=== PATIENT | male | born 1960 ===

== ENCOUNTER 2025-04-18 11:50 | Inpatient (IN) ==
--- NOTE | 2025-04-18 12:30 | Emergency Department Note ---
Impression & Plan Pulmonary edema, DIXON (dyspnea on exertion), Abnormal EKG, Elevated INR ED Provider Note NAME: REGINA GABRIEL AGE: 65 SEX: M : 1960 ARRIVES VIA: Walk-In INFORMANT: Patient, ED PROVIDER(S): Catracho Monte DO CHIEF COMPLAINT: Difficulty breathing HPI: The patient is a 65-year-old male who presented to the emergency department for an evaluation of difficulty breathing. Patient with history of coronary artery bypass grafting. The patient presented to the emergency department today because of worsening shortness of breath as well as lower extremity edema. The patient was seen by the primary care physician. The patient was referred to the emergency department for further evaluation. ROS: See above HPI for pertinent positives & negatives. A total of 10 systems reviewed and were otherwise negative. PAST MEDICAL HISTORY: See Below PAST SURGICAL HISTORY: See Below FAMILY HISTORY: See Below SOCIAL HISTORY: See Below HOME MEDICATIONS: See Below ALLERGIES: See Below VITALS: See Below PHYSICAL EXAMINATION: GENERAL: Patient is awake alert in no acute distress patient is resting comfortably and showing no signs of anxiety EYES: The conjunctivae are clear. The pupils are round and reactive. EARS, NOSE, MOUTH AND THROAT: The nose is without any evidence of any deformity. NECK: The neck is nontender and supple. RESPIRATORY: Diminished breath sounds are noted throughout with rales in all lung metzger. There is tachypnea as well as conversational dyspnea appreciated. CARDIOVASCULAR: Regular rate and rhythm noted there no murmurs rubs or gallops normal S1 normal S2. GASTROINTESTINAL: The abdomen is soft. Abdomen is nontender. MUSCULOSKELETAL/EXTREMITIES: There is no evidence of gross deformity full range of motion is noted in the hips and shoulders. SKIN: The skin is warm and dry. Pedal edema was noted bilaterally. NEUROLOGIC: Patient is awake alert and oriented x3 MEDICAL DECISION MAKING: The patient is a 65-year-old male who has a history of coronary artery bypass grafting who presented to the emergency department for an evaluation of weight gain and his leg swelling and shortness of breath. The patient's history and physical exam do appear to be consistent pulmonary edema. I discussed the patient's laboratory and radiographic studies with him. He was treated with IV Lasix in the emergency department. He was reevaluated multiple times. On reevaluation the patient was mildly improved. I discussed the patient's condition with the on-call [facility] hospitalist. They have agreed to evaluate the patient in the emergency department for further management and disposition. Triage Nursing notes reviewed. Prior medical records reviewed Vital Signs: reviewed and remarkable for elevated blood pressure. Differential diagnosis: Reactive airway disease, pneumonia, pneumothorax, COPD, CHF, infections, cardiac ischemia, pulmonary embolism, musculoskeletal, gastrointestinal, as well as other pathologies. ER treatment provided: See below Diagnostics interpreted by me: ECG: EKG was obtained in the emergency department. My interpretation is sinus rhythm at 90 bpm. First-degree AV block is noted. Poor R wave progression was noted with nonspecific ST and T wave abnormalities. QTc was 477 ms. Cardiac Monitoring: An order was placed for continuous cardiac monitoring. The monitor shows a rate of 72 bpm with a sinus rhythm. Laboratory studies: As stated above and show below. Imaging studies: See below. Radiographic imaging was reviewed by myself Consultation(s): I discussed this case with Leticia who is on for the [facility]ist group. Past Med/Surg History Problem List (Updated 04/18/25 @ 14:59 by Catracho Monte DO) Elevated INR (Acute) Abnormal EKG (Acute) DIXON (dyspnea on exertion) (Acute) Pulmonary edema (Acute) Medical History (Updated 04/18/25 @ 14:59 by Catracho Monte DO) CKD (chronic kidney disease) stage 3, GFR 30-59 ml/min Osteoarthritis of multiple joints Fatty liver Bladder cancer Diabetic polyneuropathy Hyperlipidemia Essential hypertension NSTEMI (non-ST elevated myocardial infarction) PAF (paroxysmal atrial fibrillation) Type 2 diabetes mellitus Coronary artery disease Surgical History (Updated 04/18/25 @ 14:30 by Evelina Baeza PA-C) H/O cystoscopy History of coronary artery bypass graft Social History Smoking Status: Light tobacco smoker Tobacco Type: Smokeless Tobacco (Dip or Chew) Feels Safe at Home: Yes Allergies Allergies Allergy/AdvReac Type Severity Reaction Status Date / Time metformin AdvReac Gastrointestinal Verified 04/18/25 13:51 Upset Home Meds Home Medications Medication Instructions Recorded Confirmed atorvastatin 80 mg tablet 80 mg PO DAILY 04/18/25 04/18/25 clopidogrel 75 mg tablet 75 mg PO DAILY 04/18/25 04/18/25 empagliflozin 25 mg tablet 25 mg PO DAILY 04/18/25 04/18/25 (Jardiance) furosemide 80 mg tablet 80 mg PO BID 04/18/25 04/18/25 gabapentin 300 mg capsule 300 mg PO HS 04/18/25 04/18/25 glipizide 10 mg tablet, extended 20 mg PO DAILY 04/18/25 04/18/25 release 24 hr lisinopril 40 mg tablet 40 mg PO DAILY 04/18/25 04/18/25 metoprolol succinate 25 mg 50 mg PO DAILY 04/18/25 04/18/25 tablet,extended release 24 hr potassium chloride 20 mEq 20 meq PO BID 04/18/25 04/18/25 tablet,extended release(part/cryst) repaglinide 2 mg tablet 2 mg PO AC 04/18/25 04/18/25 warfarin 5 mg tablet (Jantoven) 5 mg PO UD 04/18/25 04/18/25 Results & Data (ED) Vital Signs Vital Signs - 24 hr 04/18/25 12:02 04/18/25 13:30 04/18/25 14:24 Temperature 36.8 C Temperature Source Temporal Artery Scan Pulse Rate 81 Pulse Rate [Left Finger] 72 Respiratory Rate 16 20 Respiratory Effort / Characteristics Non-Labored Respiratory Depth Normal Blood Pressure 178/84 H Blood Pressure [Left Arm] 165/93 H Blood Pressure Mean 115 Blood Pressure Mean [Left Arm] 117 Pulse Oximetry 91 95 86 L Oxygen Delivery Method Room Air Room Air Oxygen Flow Rate Sepsis Recent Fever Within 48 Hours No Sepsis New/Unexplained Change in Mental Status No Sepsis Action Taken by Nursing No Action Required 04/18/25 14:24 Temperature Temperature Source Pulse Rate Pulse Rate [Left Finger] Respiratory Rate Respiratory Effort / Characteristics Respiratory Depth Blood Pressure Blood Pressure [Left Arm] Blood Pressure Mean Blood Pressure Mean [Left Arm] Pulse Oximetry 93 Oxygen Delivery Method Nasal Cannula Oxygen Flow Rate 2 Sepsis Recent Fever Within 48 Hours Sepsis New/Unexplained Change in Mental Status Sepsis Action Taken by Detention Medications Current Medication List: was personally reviewed by me Laboratory Data Attestation: I reviewed the patient's lab results. 04/18/25 12:14 04/18/25 12:14 Lab Results 04/18/25 04/18/25 04/18/25 Range/Units 12:14 14:07 14:21 WBC 8.22 (4.8-10.8) K/ul RBC 3.69 L (4.70-6.10) M/uL Hgb 9.8 L (14.0-18.0) g/dl Hct 31.7 L (42.0-52.0) % MCV 85.9 (80.0-100.0) fL MCH 26.6 (25.0-34.0) pg MCHC 30.9 L (32.0-36.0) g/dL RDW Std Deviation 52.9 H (36.4-46.3) fL RDW Coeff of Aleah 16.8 H (11.5-14.5) % Plt Count 267 (130-400) K/uL MPV 12.0 (9.4-12.4) fL Immature Gran % (Auto) 0.2 % Neut % (Auto) 73.2 % Lymph % (Auto) 14.4 % [place] % (Auto) 9.0 % Eos % (Auto) 2.2 % Baso % (Auto) 1.0 % Neut # (Auto) 6.02 (1.40-6.50) K/uL Lymph # (Auto) 1.18 L (1.20-3.40) K/uL [place] # (Auto) 0.74 H (0.11-0.59) K/uL Eos # (Auto) 0.18 (0.00-0.50) K/uL Baso # (Auto) 0.08 (0.00-0.20) K/uL Immature Gran # (Auto) 0.02 (0.01-0.20) K/uL PT 84.7 H (9.0-12.0) Seconds INR > 9.5 H* (0.9-1.1) APTT 68 H (21-31) Seconds PTT Ratio 2.5 Sodium 143 (136-145) mmol/L Potassium 3.9 (3.5-5.1) mmol/L Chloride 109 H (98-107) mmol/L Carbon Dioxide 22 (21-32) mmol/L Anion Gap 12 H (3-11) BUN 22 (6-23) mg/dl Creatinine 1.47 H (0.6-1.4) mg/dl Est Cr Clr Drug Dosing 62.3 ml/min eGFR 51.96 BUN/Creatinine Ratio 15.0 (10-20) Glucose 107 H (70-99(Fasting)) mg/dl Calcium 9.2 (8.6-10.3) mg/dl Magnesium 1.8 (1.7-2.4) mg/dl Total Bilirubin 1.0 (0.2-1.0) mg/dl AST 29 (13-39) U/L ALT 17 (7-52) U/L Alkaline Phosphatase 173 H (34-104) U/L Troponin I High Sens 25.3 H 25.0 H (0-20) pg/ml B-Natriuretic Peptide 1207 H (0-100) pg/ml Total Protein 7.8 (6.0-8.3) gm/dl Albumin 4.0 (3.4-5.0) gm/dl Globulin 3.8 (2.5-4.0) gm/dl Albumin/Globulin Ratio 1.1 (0.9-2) Urine Color [place] Urine Appearance Clear (Clear) Urine pH 6.5 (4.5-7.5) Ur Specific [place] 1.009 (1.000-1.030) Urine Protein 3+ H (Negative) Urine Glucose (UA) Negative (Negative) Urine Ketones Negative (Negative) Urine Blood 3+ H (Negative) Urine Nitrite Negative (Negative) Urine Bilirubin Negative (Negative) Urine Urobilinogen Negative (Negative) Ur Leukocyte Esterase Trace H (Negative) Urine WBC (Auto) 0-5 (0-5) /hpf Urine RBC (Auto) >20 H (0-2) /hpf U Hyaline Cast (Auto) 0-2 (0-2) /lpf U Epithel Cells (Auto) 0-2 (0-2) /hpf Urine Bacteria (Auto) None Seen (None Seen) Urine Comment SARS-CoV-2 (PCR) NEGATIVE (Negative) Influenza Type A (PCR) Negative (Neg) Influenza Type B (PCR) Negative (Neg) RSV (RT-PCR) Negative (Neg) Administered Medications Discontinued Medications Furosemide (Furosemide 40 Mg/4 Ml Vial) 80 mg IV ONE ONE Stop: 04/18/25 13:31 Last Admin: 04/18/25 13:50 Dose: 80 mg Documented By: KARLI Imaging Data Attestation: I personally reviewed and interpreted this imaging study as follows: My Impression: 1 view chest x-ray was obtained in the emergency department. My interpretation is cardiomegaly, final report below. Radiologist's Impression: Chest X-Ray 04/18/25 12:09 EXAM: Radiograph of the Chest 1 View INDICATION: Pain and shortness of breath. TECHNIQUE: Frontal view of the chest. COMPARISON: No relevant prior studies available. FINDINGS: Lungs and pleural spaces: Small left pleural effusion present. Mild atelectasis left base. No pneumothorax. No pulmonary edema. Heart: Enlarged cardiac shadow. Coronary bypass change noted. Mediastinum: Normal contour. Bones/joints: No fracture, erosion or dislocation. Soft tissues: No abnormality noted. No radiopaque foreign body noted. Upper abdomen: No abnormality noted. IMPRESSION: Small left pleural effusion and left basilar atelectasis. ACT 112: N/A Electronically signed by Shanthi Aguilera 04-18-2025 13:19 PM Discharge Plan Visit Data Chief Complaint: Cardiac Assessment Stated Complaint: HEART FAILURE ED Provider: Catracho Monte Discharge Problem: Pulmonary edema, DIXON (dyspnea on exertion), Abnormal EKG, Elevated INR Patient Disposition: Being Evaluated by Hospitalist Condition: Fair Forms Stand Alone Forms: My [facility] Prescriptions Prescriptions: No Action atorvastatin 80 mg tablet 80 mg PO DAILY glipizide 10 mg tablet extended release 24hr 20 mg PO DAILY clopidogrel 75 mg tablet 75 mg PO DAILY potassium chloride 20 mEq tablet,ER particles/crystals 20 meq PO BID furosemide 80 mg tablet 80 mg PO BID warfarin [Jantoven] 5 mg tablet 5 mg PO UD gabapentin 300 mg capsule 300 mg PO HS lisinopril 40 mg tablet 40 mg PO DAILY repaglinide [Prandin] 2 mg Tablet 2 mg PO AC Rx Instructions: administer within 30 minutes of a meal or snack Jardiance 25 mg Tablet 25 mg PO DAILY metoprolol succinate 25 mg Tablet Extended Release 24 Hr 50 mg PO DAILY Referrals Referrals: PCP,NO [Physician] -
[2025-04-18 12:35] LABS: Hematocrit (blood only) 31.7 % (42.0-52.0); Hemoglobin 9.8 g/dl (14.0-18.0); Immature Granulocytes # (auto) 0.02 K/uL (0.01-0.20); Immature Granulocytes % (auto) 0.2 %; Mean Corpuscular Hemoglobin 26.6 pg (25.0-34.0); Mean Corpuscular Volume 85.9 fL (80.0-100.0); Platelet Count 267 K/uL (130-400); RDW Standard Deviation 52.9 fL (36.4-46.3); Red Blood Count 3.69 M/uL (4.70-6.10); White Blood Count 8.22 K/ul (4.8-10.8)
[2025-04-18 12:57] LABS: Alanine Aminotransferase 17.0 U/L (7-52); Albumin Globulin Ratio 1.1 (0.9-2); Albumin Level 4.0 gm/dl (3.4-5.0); Alkaline Phosphatase 173.0 U/L (34-104); Anion Gap 12.0 (3-11); Bilirubin,Total 1.0 mg/dl (0.2-1.0); Blood Urea Nitrogen 22.0 mg/dl (6-23); Calcium 9.2 mg/dl (8.6-10.3); Carbon Dioxide 22.0 mmol/L (21-32); Chloride 109.0 mmol/L (98-107); Creatinine Clr Calc Pharmacy 62.3 ml/min; Globulin 3.8 gm/dl (2.5-4.0); Glucose 107.0 mg/dl (70-99(Fasting)); Magnesium 1.8 mg/dl (1.7-2.4); Potassium 3.9 mmol/L (3.5-5.1); Sodium 143.0 mmol/L (136-145); Total Protein 7.8 gm/dl (6.0-8.3)
[2025-04-18 13:12] LABS: Partial Thromboplastin Time 68 Seconds (21-31); Prothrombin Time 84.7 Seconds (9.0-12.0)
[2025-04-18 13:16] LABS: Influenza A virus by PCR Negative (Neg); Influenza B virus by PCR Negative (Neg); SARS CoV2 RNA(COVID-19) Ceph NEGATIVE (Negative)
--- NOTE | 2025-04-18 13:20 | XRay Report ---
EXAM: Radiograph of the Chest 1 View INDICATION: Pain and shortness of breath. TECHNIQUE: Frontal view of the chest. COMPARISON: No relevant prior studies available. FINDINGS: Lungs and pleural spaces: Small left pleural effusion present. Mild atelectasis left base. No pneumothorax. No pulmonary edema. Heart: Enlarged cardiac shadow. Coronary bypass change noted. Mediastinum: Normal contour. Bones/joints: No fracture, erosion or dislocation. Soft tissues: No abnormality noted. No radiopaque foreign body noted. Upper abdomen: No abnormality noted. IMPRESSION: Small left pleural effusion and left basilar atelectasis. ACT 112: N/A Electronically signed by Shanthi Aguilera 04-18-2025 13:19 PM
[2025-04-18 13:26] LABS: INR > 9.5 (0.9-1.1)
[2025-04-18] MEDS: FUROSEMIDE 40 MG/4 ML VIAL IV ONE (13:50)
--- NOTE | 2025-04-18 14:34 | History & Physical Report ---
Date of Service April 18, 2025 Assessment & Plan (1) Acute on chronic HFrEF (heart failure with reduced ejection fraction): (2) Elevated INR: (3) CKD (chronic kidney disease) stage 3, GFR 30-59 ml/min: (4) Coronary artery disease: (5) Type 2 diabetes mellitus: (6) PAF (paroxysmal atrial fibrillation): (7) Hyperlipidemia: (8) Essential hypertension: Plan This is a 65 y/o male with hx CAD s/p CABG x 5, DM2, HTN, hyperlipidemia, PAF on chronic AC, CKD3a, prior bladder CA, and other history as outlined below who was sent to the ED today from PCP office after he presented today with progressive LE edema and elevated INR. Work-up in the ED was significant for INR >9.5, BNP 1207. Initial troponin was 25.3, two hour repeat was 25.0. Testing for COVID, flu, RSV were negative. Chest x-ray personally reviewed and shows small left pleural effusion. Pt was referred for admission for acute on chronic HFrEF. #Acute on chronic HFrEF #Supratherapeutic INR #CAD s/p CABG x 5 - Admit to PCU - IV furosemide 80 mg BID - Update ECHO - Consult cardiology for assistance with management - Monitor daily weights, Is and Os - Hold warfarin in setting of elevated INR, daily INR ordered - spoke with pt's to review medications. She reports that pt has been taking warfarin BID instead of daily as ordered. Will need to review medications with patient and his at discharge to ensure understanding of prescribed regimen. - Continue GDMT for HF as taken outpatient #Left jaw pain/ecchymosis - pt somewhat unclear on possible trauma to the area, denies falls - CT head and face in the setting of supratherapeutic INR, unknown trauma history #Type 2 diabetes - Continue Jardiance, holding glipizide - Insulin sliding scale - BSG ACHS - A1c in the AM - Diabetic diet #Paroxysmal atrial fibrillation #Chronic anticoagulation with warfarin - Holding warfarin as above - Continue beta zack - currently in sinus rhythm #CKD3a - creatinine appears to be at baseline - Monitor labs in the setting of IV diuresis #Hyperlipidemia - Chronic, stable - continue statin Pt seen and reviewed with collaborating physician, Dr. Daly. Plan of care discussed and as outlined above Code status: full code DVT prophylaxis: INR currently supratherapeutic so warfarin on hold I spent a total of 82 minutes coordinating, documenting, and providing care for this patient excluding time spent in the performance of separately billed services or time spent by another provider/QHP. Sindi Baeza PA-C History of Present Illness Chief Complaint: leg swelling Primary Care Provider: Audie Vaughn MD This is a 65 y/o male with hx CAD s/p CABG x 5, DM2, HTN, hyperlipidemia, PAF on chronic AC, CKD3a, prior bladder CA, and other history as outlined below who was sent to the ED today from PCP office after he presented today with progressive LE edema and elevated INR. He reports that he developed LE swelling about a week ago, which has been worsening. He also notes occasional shortness of breath but denies orthopnea. Reports that he sleeps with his legs propped up at night. Denies cough, N/V/D, CP, orthopnea, abdominal pain. He was seen at PCP office today by Dr. Barreto due to the swelling, but also reported pain in left jaw which he attributes to a "bad tooth." He was noted to have a bruise on his jaw - when asked about this, he states that he thinks that he hit his jaw on the corner of the cupboard trying to look outside. He denies hematuria, hematochezia. Has had some constipation recently. Outpatient notes were reviewed including from anticoagulation clinic - his INR has been fluctuating recently and dose was just adjusted to warfarin 5 mg daily. However, INR yesterday was 6.7 so he was told to hold warfarin until 04/19, repeat INR 04/20 to determine future dosing. ECHO 02/28/24 -LVEF 40-44%, large sized apical, septal, and anteroseptal wall motion abnormality with akinesis of the segments Allergies Allergy/AdvReac Type Severity Reaction Status Date / Time metformin AdvReac Gastrointestinal Verified 04/18/25 13:51 Upset Home Medications Medication Instructions Recorded Confirmed Type atorvastatin 80 mg tablet 80 mg PO DAILY 04/18/25 04/18/25 History clopidogrel 75 mg tablet 75 mg PO DAILY 04/18/25 04/18/25 History empagliflozin 25 mg tablet 25 mg PO DAILY 04/18/25 04/18/25 History (Jardiance) furosemide 80 mg tablet 80 mg PO BID 04/18/25 04/18/25 History gabapentin 300 mg capsule 300 mg PO HS 04/18/25 04/18/25 History glipizide 10 mg tablet, extended 20 mg PO DAILY 04/18/25 04/18/25 History release 24 hr lisinopril 40 mg tablet 40 mg PO DAILY 04/18/25 04/18/25 History metoprolol succinate 25 mg 50 mg PO DAILY 04/18/25 04/18/25 History tablet,extended release 24 hr nifedipine 90 mg tablet,extended 90 mg PO DAILY 04/18/25 04/18/25 History release potassium chloride 20 mEq 20 meq PO BID 04/18/25 04/18/25 History tablet,extended release(part/cryst) repaglinide 2 mg tablet 2 mg PO AC 04/18/25 04/18/25 History warfarin 5 mg tablet (Jantoven) 5 mg PO UD 04/18/25 04/18/25 History Past Med/Surg History Problem List (Updated 04/18/25 @ 20:18 by Evelina Baeza PA-C) Acute on chronic HFrEF (heart failure with reduced ejection fraction) Elevated INR (Acute) Abnormal EKG (Acute) DIXON (dyspnea on exertion) (Acute) Pulmonary edema (Acute) Medical History (Updated 04/18/25 @ 20:18 by Evelina Baeza PA-C) CKD (chronic kidney disease) stage 3, GFR 30-59 ml/min Osteoarthritis of multiple joints Fatty liver Bladder cancer Diabetic polyneuropathy Hyperlipidemia Essential hypertension NSTEMI (non-ST elevated myocardial infarction) PAF (paroxysmal atrial fibrillation) Type 2 diabetes mellitus Coronary artery disease Surgical History (Updated 04/18/25 @ 14:30 by Evelina Baeza PA-C) H/O cystoscopy History of coronary artery bypass graft Social History Smoking Status: Never smoker Tobacco Type: Smokeless Tobacco (Dip or Chew) Second Hand Exposure: No; Do You Dip or Chew Tobacco: Yes; Tobacco Cessation Education Requested by Patient: No Hx Alcohol Use: Yes Alcohol type: wine Hx Substance Use: No Preferred Language: Tajik Communication Ability: Effective Assistant Mechanic Required: No Beliefs That Will Affect Care: None Current Living Situation: Spouse Other Information That Helps Us Care for You: No Feels Safe at Home: Yes Safety Concerns: Afraid for Self Assistive Devices: Glasses and Hearing Aid - Bilateral Review of Systems Review of Systems: All systems reviewed & are unremarkable except as noted in Subjective Physical Exam Physical Exam: Please see physician note for details of the physical exam. Results & Data Results & Data Vital Signs (Past 12 Hours) Vital Signs Temp Pulse Pulse Resp BP BP Pulse Ox 04/18/25 14:24 93 04/18/25 14:24 86 L 04/18/25 13:30 72 20 165/93 H 95 04/18/25 12:02 36.8 C 81 16 178/84 H 91 O2 Del Method O2 Flow Rate 04/18/25 14:24 Nasal Cannula 2 04/18/25 14:24 Room Air 04/18/25 13:30 04/18/25 12:02 Room Air Laboratory Results Lab Results 04/18/25 04/18/25 Range/Units 12:14 14:21 WBC 8.22 (4.8-10.8) K/ul RBC 3.69 L (4.70-6.10) M/uL Hgb 9.8 L (14.0-18.0) g/dl Hct 31.7 L (42.0-52.0) % MCV 85.9 (80.0-100.0) fL MCH 26.6 (25.0-34.0) pg MCHC 30.9 L (32.0-36.0) g/dL RDW Std Deviation 52.9 H (36.4-46.3) fL RDW Coeff of Aleah 16.8 H (11.5-14.5) % Plt Count 267 (130-400) K/uL MPV 12.0 (9.4-12.4) fL Immature Gran % (Auto) 0.2 % Neut % (Auto) 73.2 % Lymph % (Auto) 14.4 % [place] % (Auto) 9.0 % Eos % (Auto) 2.2 % Baso % (Auto) 1.0 % Neut # (Auto) 6.02 (1.40-6.50) K/uL Lymph # (Auto) 1.18 L (1.20-3.40) K/uL [place] # (Auto) 0.74 H (0.11-0.59) K/uL Eos # (Auto) 0.18 (0.00-0.50) K/uL Baso # (Auto) 0.08 (0.00-0.20) K/uL Immature Gran # (Auto) 0.02 (0.01-0.20) K/uL PT 84.7 H (9.0-12.0) Seconds INR > 9.5 H* (0.9-1.1) APTT 68 H (21-31) Seconds PTT Ratio 2.5 Sodium 143 (136-145) mmol/L Potassium 3.9 (3.5-5.1) mmol/L Chloride 109 H (98-107) mmol/L Carbon Dioxide 22 (21-32) mmol/L Anion Gap 12 H (3-11) BUN 22 (6-23) mg/dl Creatinine 1.47 H (0.6-1.4) mg/dl Est Cr Clr Drug Dosing 62.3 ml/min eGFR 51.96 BUN/Creatinine Ratio 15.0 (10-20) Glucose 107 H (70-99(Fasting)) mg/dl Calcium 9.2 (8.6-10.3) mg/dl Magnesium 1.8 (1.7-2.4) mg/dl Total Bilirubin 1.0 (0.2-1.0) mg/dl AST 29 (13-39) U/L ALT 17 (7-52) U/L Alkaline Phosphatase 173 H (34-104) U/L Troponin I High Sens 25.3 H (0-20) pg/ml B-Natriuretic Peptide 1207 H (0-100) pg/ml Total Protein 7.8 (6.0-8.3) gm/dl Albumin 4.0 (3.4-5.0) gm/dl Globulin 3.8 (2.5-4.0) gm/dl Albumin/Globulin Ratio 1.1 (0.9-2) Urine Comment SARS-CoV-2 (PCR) NEGATIVE (Negative) Influenza Type A (PCR) Negative (Neg) Influenza Type B (PCR) Negative (Neg) RSV (RT-PCR) Negative (Neg) Diagnostic Findings Chest X-Ray 04/18/25 12:09 EXAM: Radiograph of the Chest 1 View INDICATION: Pain and shortness of breath. TECHNIQUE: Frontal view of the chest. COMPARISON: No relevant prior studies available. FINDINGS: Lungs and pleural spaces: Small left pleural effusion present. Mild atelectasis left base. No pneumothorax. No pulmonary edema. Heart: Enlarged cardiac shadow. Coronary bypass change noted. Mediastinum: Normal contour. Bones/joints: No fracture, erosion or dislocation. Soft tissues: No abnormality noted. No radiopaque foreign body noted. Upper abdomen: No abnormality noted. IMPRESSION: Small left pleural effusion and left basilar atelectasis. ACT 112: N/A Electronically signed by Shanthi Aguilera 04-18-2025 13:19 PM Medications Administered Discontinued Medications Furosemide (Furosemide 40 Mg/4 Ml Vial) 80 mg IV ONE ONE Stop: 04/18/25 13:31 Last Admin: 04/18/25 13:50 Dose: 80 mg Documented By: KARLI Supervising Physician Co-Signing Physician Notes Presents with leg swelling fo the past week Was seen at PCP's office today and sent in to ER He does acknowledge mild shortness of breath Denied chest pain, cough, palpitations, orthopnea Reports left lower tooth ache. Reports he may have his jaw on cupboard while looking out the window Denied any falls On exam, General: Elderly man in no distress Eyes: PERRL, conjunctivae normal, not pale, anicteric sclerae, EOM intact bilaterally ENMT: External ear and nose normal, oropharynx normal, +bruise on left lower jaw area. No swelling or tenderness Respiratory: On nasal cannula placed in ER +crackles Cardiovascular: RRR S1 S2 Gastrointestinal (Abdomen): Abdomen is not distended, soft, non-tender to palpation, normal bowel sounds Musculoskeletal: Significant pitting pedal edema on both LE Neurologic: Alert and oriented to person, place, month. No focal deficits. Psychiatric: Normal mood and affect Labs notabl e for Hb 9.8, INR >9.5, Cr 1.47, Alk P 173, Trop 25.3->25, BNP 1207 CXR noted small left pleural effusion Acute on chronic heart failure with reduced ejection fraction Supratherapeutic INR IV lasix 80mg BID Monitor I/O Daily weight Cards c/s TTE Bruise on left jaw. No swelling/tenderness/sign of hematoma Calls to to confirm med list and to confirm about bruise on left jaw were unanswered Will get CT head and CT face. If any sign of bleeding, give vit K for INR reversal Hold warfarin Other plans as detailed by Leonila Baeza PA-C (3) CKD (chronic kidney disease) stage 3, GFR 30-59 ml/min Chronic kidney disease stage 3 subtype: unspecified whether 3a or 3b Qualified Code(s): N18.30 - Chronic kidney disease, stage 3 unspecified (4) Coronary artery disease Coronary Disease-Associated Artery/Lesion type: teller artery [place] vs. transplanted heart: teller heart Associated angina: unspecified whether angina present Qualified Code(s): I25.10 - Atherosclerotic heart disease of teller coronary artery without angina pectoris (5) Type 2 diabetes mellitus Diabetes mellitus fci insulin use: without fci use Diabetes mellitus complication status: with neurologic complications Diabetes mellitus c omplication detail: with polyneuropathy Qualified Code(s): E11.42 - Type 2 diabetes mellitus with diabetic polyneuropathy (7) Hyperlipidemia Hyperlipidemia type: unspecified Qualified Code(s): E78.5 - Hyperlipidemia, unspecified
[2025-04-18 14:37] LABS: Appearance Urine Clear (Clear); Bacteria Urine Automated None Seen (None Seen); Cast Urine Automated 0-2 /lpf (0-2); Epithelial Cell Urine Auto 0-2 /hpf (0-2); Glucose Urine UA Negative (Negative); RBC Urine Automated >20 /hpf (0-2); WBC Urine Automated 0-5 /hpf (0-5)
--- NOTE | 2025-04-18 16:37 | CT Scan Report ---
CT maxillofacial without contrast History: Trauma Comparison: None Technique: Using thin collimation multidetector helical acquisition technique, axial and coronal thin section CT images were reconstructed through the facial bones. Images were reviewed in bone and soft tissue windows. One or more of the following dose-optimizing techniques was utilized for this exam: automated exposure control, adjustment of the mA and/or kV according to patient size, and/or use of iterative reconstruction technique. Findings: There is no significant soft tissue swelling of the face. There is no evident fracture of the facial bones. The cribriform plate appears intact. Alignment of the facial bones appears normal. There is no hematoma, soft tissue mass or gas visualized within the orbits. The visualized portions of the paranasal sinuses are clear. Scattered dental erosions and periodontal disease seen. There are several missing teeth. Impression: Normal CT study of the facial bones. Electronically signed by Malik Hirsch 04-18-2025 4:37 PM
--- NOTE | 2025-04-18 16:39 | CT Scan Report ---
CT head without contrast History: Trauma Comparison: None Technique: Using multidetector thin collimation helical acquisition technique, axial, coronal and sagittal CT images from the skull base to the vertex were obtained without intravenous contrast. Dose reduction techniques were achieved by using automatic exposure control and/or adjustment of mA and/or kV according to patient size and/or use of iterative reconstruction technique. Findings: No intracranial hemorrhage, mass-effect, or midline shift. The ventricles are proportionate to the cerebral sulci. The wilkinson to white matter differentiation of the cerebral hemispheres is preserved. The basal cisterns are patent. There is moderate cerebral atrophy. Moderate, patchy low-attenuation changes in the white matter, most suggestive of sequelae of chronic small vessel ischemic disease. The visualized paranasal sinuses are clear. Mastoid air cells are clear. Impression: No acute intracranial pathology. Electronically signed by Malik Hirsch 04-18-2025 4:37 PM
--- NOTE | 2025-04-18 18:02 | XCELERA ---
[id number]
[2025-04-18] MEDS: FUROSEMIDE 40 MG/4 ML VIAL IV SCH (18:24)
[2025-04-18] MEDS ORDERED: GLUCOSE 40% GEL 15 GM TUBE PO PRN (18:46)
[2025-04-18] MEDS ORDERED: GLUCAGON FOR INJ 1 MG VIAL SQ PRN (18:46)
[2025-04-18] MEDS ORDERED: CARBOHYDRATES FOR HYPOGLYCEMIA PO PRN (18:46)
[2025-04-18] MEDS ORDERED: GLUCOSE 10 TAB/TUBE PO PRN (18:46)
[2025-04-18] MEDS ORDERED: DEXTROSE 50% 50 ML SYRINGE IV PRN (18:46)
[2025-04-18] MEDS: GABAPENTIN 300 MG CAP PO SCH (20:03)
[2025-04-18 20:16] LABS: Hematocrit (blood only) 29.7 % (42.0-52.0); Hemoglobin 9.2 g/dl (14.0-18.0)
[2025-04-18] MEDS: INFLUENZA VACC TS2025-26(65y+)/PF (IIV3) 0.5mL Syr IM ONE (20:28)
[2025-04-18] MEDS: PHYTONADIONE 5 MG TAB PO STA (20:30)
[2025-04-18] MEDS: INSULIN ASPART PER UNIT CHARGE SC SCH (20:39)
[2025-04-18] MEDS: POTASSIUM CHLORIDE CRTAB 20 MEQ TABCR PO SCH (20:40)
[2025-04-18] MEDS: PHYTONADIONE 5 MG in DEXTROSE 5% 50 ML IV ONE (20:42)
--- NOTE | 2025-04-19 06:51 | Electrocardiogram Report ---
Test Reason : Blood Pressure : */* mmHG Vent. Rate : 90 BPM Atrial Rate : 90 BPM P-R Int : 200 ms QRS Dur : 126 ms QT Int : 390 ms P-R-T Axes : * 17 152 degrees QTcB Int : 477 ms Sinus rhythm Left bundle branch block Abnormal ECG No previous ECGs available Confirmed by Chris Mazariegos ([id number]) on 04/19/2025 6:50:58 AM Referred By: REFERRED SELF Confirmed By: Chris Mazariegos
[2025-04-19 07:18] LABS: Anion Gap 8.0 (3-11); Blood Urea Nitrogen 22.0 mg/dl (6-23); Calcium 8.5 mg/dl (8.6-10.3); Carbon Dioxide 27.0 mmol/L (21-32); Chloride 108.0 mmol/L (98-107); Creatinine Clr Calc Pharmacy 67.8 ml/min; Glucose 65.0 mg/dl (70-99(Fasting)); Magnesium 1.8 mg/dl (1.7-2.4); Potassium 3.2 mmol/L (3.5-5.1); Sodium 143.0 mmol/L (136-145)
[2025-04-19 07:22] LABS: Hemoglobin A1C 6.7 % (4.5-5.6)
[2025-04-19 07:25] LABS: INR 2.4 (0.9-1.1); Prothrombin Time 23.7 Seconds (9.0-12.0)
[2025-04-19] MEDS: METOPROLOL SUCC 50MG EXT REL TAB PO SCH (07:54)
[2025-04-19] MEDS: EMPAGLIFLOZIN 25 MG TAB PO SCH (07:55)
[2025-04-19] MEDS: CLOPIDOGREL BISULFATE 75 MG TAB PO SCH (07:55)
[2025-04-19] MEDS: ATORVASTATIN 40 MG TAB PO SCH (07:55)
[2025-04-19] MEDS: NIFEdipine EXTENDED REL 30 MG TABCR PO SCH (07:56)
--- NOTE | 2025-04-19 10:56 | Hospitalist Progress Note ---
Date of Service April 19, 2025 Assessment & Plan (1) Acute on chronic HFrEF (heart failure with reduced ejection fraction): (2) Elevated INR: (3) CKD (chronic kidney disease) stage 3, GFR 30-59 ml/min: (4) Coronary artery disease: (5) Type 2 diabetes mellitus: (6) PAF (paroxysmal atrial fibrillation): (7) Hyperlipidemia: (8) Essential hypertension: Plan This is a 65 y/o male with hx CAD s/p CABG x 5, DM2, HTN, hyperlipidemia, PAF on chronic AC, CKD3a, prior bladder CA, and other history as outlined below who was sent to the ED today from PCP office after he presented today with progressive LE edema and elevated INR. Work-up in the ED was significant for INR >9.5, BNP 1207. Initial troponin was 25.3, two hour repeat was 25.0. Testing for COVID, flu, RSV were negative. Chest x-ray personally reviewed and shows small left pleural effusion. Pt was referred for admission for acute on chronic HFrEF. #Acute on chronic HFrEF #Supratherapeutic INR s/p vit k #CAD s/p CABG x 5 Patient presents today with significant lower extremity edema Echocardiogram from last year shows EF of 40% Echocardiogram done during admission shows EF of 20 to 25% Examination reveals significant bilateral pitting edema Continue IV diuretics with Lasix 80 mg twice a day Strict input and output monitoring Potassium supplement Resume Coumadin Cardiology on board appreciate recommendation Obtain urine protein creatinine ratio #Type 2 diabetes - Continue Jardiance, holding glipizide - Insulin sliding scale - BSG ACHS #Paroxysmal atrial fibrillation #Chronic anticoagulation with warfarin - resume warfarin - Continue beta zack - currently in sinus rhythm #CKD3a - creatinine appears to be at baseline - Monitor labs in the setting of IV diuresis #Hyperlipidemia - Chronic, stable - continue statin Pt seen and reviewed with collaborating physician, Dr. Daly. Plan of care discussed and as outlined above Code status: full code DVT prophylaxis: coumadin Time spent evaluating patient, direct bedside care, chart review, placing orders, interpretation of diagnostic studies, discussion with consultants, p atient, and family members, as well as other required patient management activities is 50 minutes Please note the above document was generated using voice recognition software. It may contain grammatical, syntax or spelling errors. Any formal questions or concerns about the content, text or information contained within the body of this dictation should be directly addressed to the provider for clarification Admission and Anticipated Discharge Date Admission Date: April 18, 2025 Subjective Patient seen and examined at bedside. He reports that he is feeling much better and his lower extremity edema has improved. Review of Systems Review of Systems: All systems reviewed & are unremarkable except as noted in Subjective Physical Exam 2 Physical Exam: Constitutional: WD/WN, vitals as above, NAD, sitting up in bed, pleasant, conversing easily Respiratory: normal respiratory effort, lungs clear to auscultation, no wheeze, rales, rhonchi. Normal insp/exp effort, no accessory muscle use Cardiovascular: RRR, no murmur, no edema Vessels: no JVD or carotid bruit Chest: normal inspection of chest Abdomen: normal bowel sounds, soft, nontender, no hepatosplenomegaly Musculoskeletal: 4+ pitting edema seen in bilateral lower extremity Neurologic: PERRL, EOMI, accommodation nl, no face palsy, no dysarthria CN's II- XI intact bilaterally and moves all extremities Psychiatric: A+Ox3, euthymic affect Results & Data Results & Data Vital Signs (Past 12 Hours) Vital Signs Temp Pulse Resp BP Pulse Ox O2 Del Method 04/19/25 07:25 37.0 C 74 18 182/94 H 91 Room Air 04/19/25 03:54 36.7 C 75 16 183/99 H 93 Room Air 04/18/25 23:59 37.1 C 69 18 141/69 H 95 Room Air (3) CKD (chronic kidney disease) stage 3, GFR 30-59 ml/min Chronic kidney disease stage 3 subtype: unspecified whether 3a or 3b Qualified Code(s): N18.30 - Chronic kidney disease, stage 3 unspecified (4) Coronary artery disease Associated angina: unspecified whether angina present Coronary Disease- Associated Artery/Lesion type: [place] artery [place] vs. transplanted heart: [place] heart Qualified Code(s): I25.10 - Atherosclerotic heart disease of [place] coronary artery without angina pectoris (5) Type 2 diabetes mellitus Diabetes mellitus complication detail: with polyneuropathy Diabetes mellitus complication status: with neurologic complications Diabetes mellitus intermodal owner operator truck driver insulin use: without retirement use Qualified Code(s): E11.42 - Type 2 diabetes mellitus with diabetic polyneuropathy (7) Hyperlipidemia Hyperlipidemia type: unspecified Qualified Code(s): E78.5 - Hyperlipidemia, unspecified
[2025-04-19] MEDS: POTASSIUM CHLORIDE CRTAB 20 MEQ TABCR PO SCH (11:13)
[2025-04-19 12:44] LABS: Protein Creatinine Ratio Urine 4.4 (0-0.2); Total Protein Urine Random 74.5 mg/dl (0-11.9)
[2025-04-19] MEDS: FUROSEMIDE 40 MG/4 ML VIAL IV SCH (14:02)
[2025-04-19] MEDS: POTASSIUM CHLORIDE CRTAB 20 MEQ TABCR PO STA (14:34)
--- NOTE | 2025-04-19 15:10 | Cardiology Consultation ---
Date of Consultation April 19, 2025 Assessment & Plan (1) Acute on chronic HFrEF (heart failure with reduced ejection fraction): (2) Elevated INR: (3) Coronary artery disease: Plan 65 year old male with past medical history of HFrEF, multivessel CAD s/p CABG x5 in 2023, paroxysmal atrial fibrillation, HTN, CKD, who presents to ED with worsening lower extremity edema, shortness of breath, weight gain. - appears significantly volume overloaded on exam consistent with acute on chronic HFrEF - responding well to IV diuresis, continue furosemide IV 80 mg twice daily - strict I and Os, daily weights on standing scale, 2 g sodium restriction and 2 L fluid restriction - elevate legs, compression stockings - d/c nifedipine as it may worsen edema, start spironolactone 25 mg daily - continue GDMT with metoprolol succinate, lisinopril, Jardiance, plavix, atorvastatin - INR today 2.4, INR goal 2.0-3.0, resume coumadin per primary - continue to monitor on telemetry - will need to establish with new national sales manager as outpatient if he is unable to follow up with [facility] due to insurance Case discussed with attending physician, further recommendations per Dr. Rodriguez. I spent a total of 40 minutes on the date of service in preparation, delivery, and documentation of the care provided to this patient excluding any time spent in the performance of separately billed services. This visit was a split-shared visit with the substantial portion of the decision making performed by the supervising national sales manager/billing provider. Cathy Martinez PA-C [facility] Card[facility] Supervising Physician Co-Signing Physician Notes Patient seen and examined. Past medical history, surgical history, social history and family history have been reviewed. The medical record and all the above studies have been reviewed. Case DW ELVIS including management. ECHO 04/18/25 Interpretation Summary Left ventricular systolic function is severely reduced. Left Ventricular Ejection Fraction = 20-25%. The right atrium is mild to moderately dilated. Mild aortic regurgitation. Mild pulmonic valvular regurgitation. There is moderate mitral regurgitation. There is mild mitral stenosis. There is mild to moderate tricuspid regurgitation. Acute on chronic HFrEF Coagulopathy Coronary artery disease s/p 5V CABG PAF LE edema correct and f/u electrolytes f/u renal function IV diuretics DC Procardia XL coumadin for INR 2 to 3 consider changing Lisinopril to Entresto after ACEI washout GDMT for HFrEF as tolerated keeping HR between 60 to 100 BPM and systolic BP between 100-140 mmHg avoid hypovolemia keep patient euvolemic keep LE elevated when sitting 1.5 L / 24 hr fluid restriction strict I&Os salt restriction counseling Consider EP eval for ICD after med optimization and repeat ECHO possible LifeVest for now on discharge History of Present Illness Reason for Consultation: CHF Requesting Physician: Hospitalist Attending Physician: Vazquez Desouza MD History of Present Illness 65 year old male with past medical history of HFrEF, multivessel CAD s/p CABG x5 in 2023, paroxysmal atrial fibrillation, HTN, CKD, who presents to ED with worsening lower extremity edema, shortness of breath, weight gain. States symptoms have progressively been getting worse over the past week. States compliance with home diuretics. Noted to have supratherapeutic INR, 6.7, was taking incorrect dose of Coumadin at home. Saw PCP yesterday and was referred to the ED. In ED, appeared to be volume overloaded on exam. BNP elevated. INR >9.5. Troponin flat. Chest x-ray with small left pleural effusion. Started on IV diuresis. Cardiology consulted for further management of CHF. On exam today, he is resting comfortably in bed. States he is feeling better. Denies chest pain, palpitations, shortness of breath, lightheadedness. States edema is improving. Has not seen outpatient cardiology clinic since 2023 due to insurance, was trying to transfer to new national sales manager. Patient does not know what medications he takes at home, assists in medication management. He is active at baseline, walks regularly, looking forward to cutting wood again. No recent change in diet. Allergies Allergy/AdvReac Type Severity Reaction Status Date / Time metformin AdvReac Gastrointestinal Verified 04/18/25 13:51 Upset Home Medications Medication Instructions Recorded Confirmed Type atorvastatin 80 mg tablet 80 mg PO DAILY 04/18/25 04/18/25 History clopidogrel 75 mg tablet 75 mg PO DAILY 04/18/25 04/18/25 History empagliflozin 25 mg tablet 25 mg PO DAILY 04/18/25 04/18/25 History (Jardiance) furosemide 80 mg tablet 80 mg PO BID 04/18/25 04/18/25 History gabapentin 300 mg capsule 300 mg PO HS 04/18/25 04/18/25 History glipizide 10 mg tablet, extended 20 mg PO DAILY 04/18/25 04/18/25 History release 24 hr lisinopril 40 mg tablet 40 mg PO DAILY 04/18/25 04/18/25 History metoprolol succinate 25 mg 50 mg PO DAILY 04/18/25 04/18/25 History tablet,extended release 24 hr nifedipine 90 mg tablet,extended 90 mg PO DAILY 04/18/25 04/18/25 History release potassium chloride 20 mEq 20 meq PO BID 04/18/25 04/18/25 History tablet,extended release(part/cryst) repaglinide 2 mg tablet 2 mg PO AC 04/18/25 04/18/25 History warfarin 5 mg tablet (Jantoven) 5 mg PO UD 04/18/25 04/18/25 History Patient History Medical History CKD (chronic kidney disease) stage 3, GFR 30-59 ml/min Osteoarthritis of multiple joints Fatty liver Bladder cancer Diabetic polyneuropathy Hyperlipidemia Essential hypertension NSTEMI (non-ST elevated myocardial infarction) PAF (paroxysmal atrial fibrillation) Type 2 diabetes mellitus Coronary artery disease Surgical History H/O cystoscopy History of coronary artery bypass graft Social History Smoking Status: Never smoker Tobacco Type: Smokeless Tobacco (Dip or Chew) Second Hand Exposure: No; Do You Dip or Chew Tobacco: Yes; Tobacco Cessation Education Requested by Patient: No Hx Alcohol Use: Yes Alcohol type: wine Hx Substance Use: No Preferred Language: Pan[place]ian Communication Ability: Effective 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 PULMONARY: No cough, sputum, or hemoptysis, No wheezing, No shortness of breath and No recent change in breathing. CARDIOVASCULAR: No chest pain, + dyspnea on exertion, + edema, No palpitations and No syncope. GASTROINTESTINAL: No abdominal pain, No change in bowel habits, No significant heartburn, No nausea, No vomiting, No diarrhea, No constipation, No blood in stools or black tarry stools. No dysphagia. HEMATOLOGIC: No abnormal bleeding and No bruising. NEUROLOGICAL: Normal balance, No headaches and No weakness. Physical Exam Physical Exam: General: No acute distress. A+Ox3. HEENT: Normocephalic. Atraumatic. PERRL. EOMI. Conjunctiva and sclera clear. Heart: RRR. S1 and S2 noted. No murmur. No rubs or gallops. PMI non displaced. Lungs: Clear to auscultation. No wheezes. No rhonchi. No rales. Abdomen: Normal bowel sounds. Soft. Nontender. No masses or organomegaly. No abdominal bruits. Extremities: 4+ BLE edema. No clubbing or cyanosis. NEURO: No focal deficits. PSYCH: Appropriate affect and insight. Results & Data Vital Signs (Past 12 Hours) Vital Signs Temp Pulse Pulse Resp BP Pulse Ox O2 Del Method 04/19/25 15:00 60 04/19/25 11:17 36.9 C 63 19 161/76 H 90 Room Air 04/19/25 08:00 74 04/19/25 07:25 37.0 C 74 18 182/94 H 91 Room Air 04/19/25 03:54 36.7 C 75 16 183/99 H 93 Room Air Laboratory Results Coagulation 04/19/25 Range/Units 06:45 PT 23.7 H (9.0-12.0) Seconds CBC 04/18/25 Range/Units 20:01 Hgb 9.2 L (14.0-18.0) g/dl Hct 29.7 L (42.0-52.0) % Comprehensive Metabolic Panel 04/19/25 Range/Units 06:45 Sodium 143 (136-145) mmol/L Potassium 3.2 L (3.5-5.1) mmol/L Chloride 108 H (98-107) mmol/L Carbon Dioxide 27 (21-32) mmol/L BUN 22 (6-23) mg/dl Creatinine 1.32 (0.6-1.4) mg/dl Glucose 65 L (70-99(Fasting)) mg/dl Calcium 8.5 L (8.6-10.3) mg/dl Intake and Output 04/19/25 04/19/25 04/19/25 06:59 14:59 22:59 Intake Total 240 / 290.5 1080 / 1080 Output Total 350 / 3626 3075 / 3075 Balance -110 / -3335.5 -1994 / Intake: Oral 240 / 240 1080 / 1080 Output: Urine 350 / 3625 3075 / 3075 Other: Weight 107.6 kg Weight Measurement Method Standing Scale Diagnostic Findings Echo 04/18/25: LVEF 20-25%, mild AR, moderate MR, mild MS, mild to moderate TR EKG 04/18/25: sinus rhythm, LBBB, 90 bpm PG Care Time/CCT Total # of Minutes Spent Total Time Spent with Patient: Total time spent is greater than 50% in coordination of care (as documented) at patient's floor/unit and/or counseling patient: [place] [address] IN/OBS CONSULT LVL 5,80M Patient Type New Medical Decision Making High Complexity Diagnoses Acute on chronic HFrEF (heart failure with reduced ejection fraction) I50.23 Elevated INR R79.1 Coronary artery disease involving [place] coronary artery of [place] heart, unspecified whether angina present I25.10 Associated angina: unspecified whether angina present Coronary Disease-Associated Artery/Lesion type: [place] artery [place] vs. transplanted heart: [place] heart (3) Coronary artery disease Associated angina: unspecified whether angina present Coronary Disease- Associated Artery/Lesion type: [place] artery [place] vs. transplanted heart: [place] heart Qualified Code(s): I25.10 - Atherosclerotic heart disease of [place] coronary artery without angina pectoris
[2025-04-19] MEDS: WARFARIN SOD 5 MG TAB PO SCH (16:05)
[2025-04-20 07:27] LABS: INR 1.5 (0.9-1.1); Prothrombin Time 15.7 Seconds (9.0-12.0)
[2025-04-20 07:35] LABS: Anion Gap 9.0 (3-11); Blood Urea Nitrogen 24.0 mg/dl (6-23); Calcium 8.7 mg/dl (8.6-10.3); Carbon Dioxide 26.0 mmol/L (21-32); Chloride 107.0 mmol/L (98-107); Creatinine Clr Calc Pharmacy 53.5 ml/min; Glucose 151.0 mg/dl (70-99(Fasting)); Magnesium 1.8 mg/dl (1.7-2.4); Potassium 3.5 mmol/L (3.5-5.1); Sodium 142.0 mmol/L (136-145)
[2025-04-20] MEDS: SPIRONOLACTONE 25 MG TAB PO SCH (08:14)
--- NOTE | 2025-04-20 10:29 | Nephrology Consultation ---
Date of Consultation April 20, 2025 Assessment & Plan (1) DAMIAN (acute kidney injury): Some rise in creatinine but is to be expected given sig drop in cardiac function now. LVEF 15% vs 40% last year. Also some rise happening because of good diuresis. Also creat currently is true reflection of renal function. Admission creat was not really valid with massive edema. Continue lasix 80 iv bid Continue CLARISSA, Aldactone and Jardiance for now. However there is no guarantee that his kidneys will be able to handle all the drugs in the future . we might have to stop some. too early to tell. Do repeat UA and urine PCR. If creat still rising will do renal US (2) Acute on chronic HFrEF (heart failure with reduced ejection fraction): LVEF 15% vs 40% last year. Continue lasix 80 iv bid Continue CLARISSA, Aldactone and Jardiance for now. daily labs (3) Pulmonary edema: Plan time spent 62 mins History of Present Illness Reason for Consultation: DAMIAN and CHF Attending Physician: Vazquez Desouza MD History of Present Illness 65/M with near normal Baseline creat of 1--1.4, HFrEF, multivessel CAD s/p CABG x5 in 2023, paroxysmal atrial fibrillation, HTN, DM2, CKD 3 A. He came to ED with worsening lower extremity edema, shortness of breath, weight gain which hav e progressively been getting worse for 1 week. taking his home diuretics. Noted to have supratherapeutic INR, 6.7, was taking incorrect dose of Coumadin at home. Saw PCP and was referred to the ED. In ED, appeared to be volume overloaded on exam. BNP elevated. INR >9.5. Troponin flat. Chest x-ray with small left pleural effusion. Started on IV diuresis--lasix 80 bid. Also Aldactone started. His home meds--Lisinopril 40 and Jardiance continued. making lot of urine --made 4100 ml urine ysterday Creat 1.47 then 1.32 but today is up to 1.66 . 04/18 ECHO shows much lower EF of 15% compared to 02/28/24 -LVEF 40-44%. ROS--see HPI. 12 Systems reviewed and negative otherwise Physical Exam Physical Exam: General: No acute distress. A+Ox3. HEENT: Normocephalic. Atraumatic. PERRL. EOMI. Conjunctiva and sclera clear. Heart: RRR. S1 and S2 noted. No murmur. No rubs or gallops. Lungs: Clear to auscultation. No wheezes. No rhonchi. No rales. Abdomen: Normal bowel sounds. Soft. Nontender. Extremities: 2+ BLE edema. NEURO: No focal deficits. PSYCH: Appropriate affect and insight. Allergies Allergy/AdvReac Type Severity Reaction Status Date / Time metformin AdvReac Gastrointestinal Verified 04/18/25 13:51 Upset Home Medications Medication Instructions Recorded Confirmed Type atorvastatin 80 mg tablet 80 mg PO DAILY 04/18/25 04/18/25 History clopidogrel 75 mg tablet 75 mg PO DAILY 04/18/25 04/18/25 History empagliflozin 25 mg tablet 25 mg PO DAILY 04/18/25 04/18/25 History (Jardiance) furosemide 80 mg tablet 80 mg PO BID 04/18/25 04/18/25 History gabapentin 300 mg capsule 300 mg PO HS 04/18/25 04/18/25 History glipizide 10 mg tablet, extended 20 mg PO DAILY 04/18/25 04/18/25 History release 24 hr lisinopril 40 mg tablet 40 mg PO DAILY 04/18/25 04/18/25 History metoprolol succinate 25 mg 50 mg PO DAILY 04/18/25 04/18/25 History tablet,extended release 24 hr nifedipine 90 mg tablet,extended 90 mg PO DAILY 04/18/25 04/18/25 History release potassium chloride 20 mEq 20 meq PO BID 04/18/25 04/18/25 History tablet,extended release(part/cryst) repaglinide 2 mg tablet 2 mg PO AC 04/18/25 04/18/25 History warfarin 5 mg tablet (Jantoven) 5 mg PO UD 04/18/25 04/18/25 History Patient History Medical History CKD (chronic kidney disease) stage 3, GFR 30-59 ml/min Osteoarthritis of multiple joints Fatty liver Bladder cancer Diabetic polyneuropathy Hyperlipidemia Essential hypertension NSTEMI (non-ST elevated myocardial infarction) PAF (paroxysmal atrial fibrillation) Type 2 diabetes mellitus Surgical History H/O cystoscopy History of coronary artery bypass graft Social History Smoking Status: Never smoker Tobacco Type: Smokeless Tobacco (Dip or Chew) Second Hand Exposure: No; Do You Dip or Chew Tobacco: Yes; Tobacco Cessation Education Requested by Patient: No Hx Alcohol Use: Yes Alcohol type: wine Hx Substance Use: No Preferred Language: German Communication Ability: Effective 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 ECHo with LVVEF 15%
--- NOTE | 2025-04-20 10:29 | Hospitalist Progress Note ---
Date of Service April 20, 2025 Assessment & Plan (1) Acute on chronic HFrEF (heart failure with reduced ejection fraction): (2) Elevated INR: (3) CKD (chronic kidney disease) stage 3, GFR 30-59 ml/min: (4) Coronary artery disease: (5) Type 2 diabetes mellitus: (6) PAF (paroxysmal atrial fibrillation): (7) Hyperlipidemia: (8) Essential hypertension: Plan This is a 65 y/o male with hx CAD s/p CABG x 5, DM2, HTN, hyperlipidemia, PAF on chronic AC, CKD3a, prior bladder CA, and other history as outlined below who was sent to the ED today from PCP office after he presented today with progressive LE edema and elevated INR. Work-up in the ED was significant for INR >9.5, BNP 1207. Initial troponin was 25.3, two hour repeat was 25.0. Testing for COVID, flu, RSV were negative. Chest x-ray personally reviewed and shows small left pleural effusion. Pt was referred for admission for acute on chronic HFrEF. #Acute on chronic HFrEF #Supratherapeutic INR s/p vit k #CAD s/p CABG x 5 Patient presents today with significant lower extremity edema Echocardiogram from last year shows EF of 40% Echocardiogram done during admission shows EF of 20 to 25% Examination reveals significant bilateral pitting edema Patient is diuresed with IV Lasix 80 mg twice a day with improvement in bilateral lower extremity edema. His creatinine is slightly elevated from baseline; will hold additional diuretics at this time. Appreciate cardiology input regarding medication adjustment; cardiology also recommends possible life vest for now. Nifedipine discontinued as it was contributing to lower extremity edema Urine protein creatinine ratio found to be elevated; urine analysis shows 3+ proteinuria; will consult nephrology for further recommendation. Patient currently on lisinopril. #Type 2 diabetes - Continue Jardiance, holding glipizide - Insulin sliding scale - BSG ACHS #Paroxysmal atrial fibrillation #Chronic anticoagulation with warfarin - resume warfarin; dose increased to 10mg on 04/20/2025. - Continue beta zack - currently in sinus rhythm #CKD3a - creatinine appears to be at baseline - Monitor labs in the setting of IV diuresis #Hyperlipidemia - Chronic, stable - continue statin Code status: full code DVT prophylaxis: coumadin Time spent evaluating patient, direct bedside care, chart review, placing orders, interpretation of diagnostic studies, discussion with consultants, patient, and family members, as well as other required patient management activities is 50 minutes Please note the above document was generated using voice recognition software. It may contain grammatical, syntax or spelling errors. Any formal questions or concerns about the content, text or information contained within the body of thi s dictation should be directly addressed to the provider for clarification Admission and Anticipated Discharge Date Admission Date: April 18, 2025 Subjective Patient seen and examined at bedside. He continues to report improvement in lower extremity edema and swelling. Urine output of 2.6 L in last 24 hours. Review of Systems Review of Systems: All systems reviewed & are unremarkable except as noted in Subjective Physical Exam Physical Exam: Constitutional: WD/WN, vitals as above, NAD, sitting up in bed, pleasant, conversing easily Respiratory: normal respiratory effort, lungs clear to auscultation, no wheeze, rales, rhonchi. Normal insp/exp effort, no accessory muscle use Cardiovascular: RRR, no murmur, no edema Vessels: no JVD or carotid bruit Chest: normal inspection of chest Abdomen: normal bowel sounds, soft, nontender, no hepatosplenomegaly Musculoskeletal: 2+ pitting edema seen in bilateral lower extremity Neurologic: PERRL, EOMI, accommodation nl, no face palsy, no dysarthria CN's II- XI intact bilaterally and moves all extremities Psychiatric: A+Ox3, euthymic affect Results & Data Results & Data Vital Signs (Past 12 Hours) Vital Signs Temp Pulse Resp BP Pulse Ox O2 Del Method 04/20/25 08:15 62 04/20/25 07:16 36.6 C 59 L 19 151/76 H 95 Room Air 04/20/25 02:48 36.8 C 77 20 127/82 92 Room Air 04/19/25 23:03 37.1 C 59 L 18 121/61 90 Room Air (3) CKD (chronic kidney disease) stage 3, GFR 30-59 ml/min Chronic kidney disease stage 3 subtype: unspecified whether 3a or 3b Qualified Code(s): N18.30 - Chronic kidney disease, stage 3 unspecified (4) Coronary artery disease Coronary Disease-Associated Artery/Lesion type: [place] artery [place] vs. transplanted heart: [place] heart Associated angina: unspecified whether angina present Qualified Code(s): I25.10 - Atherosclerotic heart disease of [place] coronary artery without angina pectoris (5) Type 2 diabetes mellitus Diabetes mellitus watermaster insulin use: without watermaster use Diabetes mellitus complication status: with neurologic complications Diabetes mellitus complication detail: with polyneuropathy Qualified Code(s): E11.42 - Type 2 diabetes mellitus with diabetic polyneuropathy (7) Hyperlipidemia Hyperlipidemia type: unspecified Qualified Code(s): E78.5 - Hyperlipidemia, unspecified
--- NOTE | 2025-04-20 11:23 | Cardiology Progress Note ---
Date of Service April 20, 2025 Assessment & Plan (1) Acute on chronic HFrEF (heart failure with reduced ejection fraction): (2) Coronary artery disease: (3) PAF (paroxysmal atrial fibrillation): (4) LBBB (left bundle branch block): Plan 65-year-old male presents with subacute onset of symptoms of worsening lower extremity edema and shortness of breath with findings of acute on chronic congestive heart failure with reduced ejection fraction. Past hospitalized in August 2024 for similar event. Patient responding to therapies. 1. Acute on chronic heart failure with reduced ejection fraction EF 20-25% Patient on GDMT except for consideration of Entresto. Will continue diuretics 2. Paroxysmal atrial fibrillation on chronic anticoagulation with warfarin 3. New left bundle branch block: Repeat EKG in a.m. May consider BiV pacer defibrillator in future 4. Acute on chronic renal insufficiency: Following with nephrology as diuresis proceeds Admission and Anticipated Discharge Date Admission Date: April 18, 2025 Subjective Patient was seen telemetry and medications were reviewed. Patient feels substantially improved since hospitalization weight down at least 10 pounds by description. Lower extremity edema improving. Dyspnea at rest has resolved. Maintaining good oxygenation on room air. Feels he has been compliant with medications at home. No chest pains, tachypalpitations, dizziness or lightheadedness. No atrial fibrillation on telemetry. Review of Systems Review of Systems: All systems reviewed & are unremarkable except as noted in Subjective Physical Exam Constitutional: well developed; no acute distress Eyes: PERRL, conjunctivae normal, anicteric sclerae ENMT: external ear and nose normal, oropharynx normal Neck: trachea midline, no thyromegaly Respiratory: normal respiratory effort, lungs clear to auscultation Auscultation: no wheezes Cardiovascular: Rate/Rhythm: regular rate and regular rhythm Vessels: no JVD Extremities: + edema Gastrointestinal (Abdomen): normal bowel sounds, soft, nontender, no hepatosplenomegaly Musculoskeletal: no cyanosis or clubbing, extremities motor strength 5/5 Results & Data Vital Signs (Past 12 Hours) Vital Signs Temp Pulse Resp BP Pulse Ox O2 Del Method 04/20/25 08:15 62 04/20/25 07:16 36.6 C 59 L 19 151/76 H 95 Room Air 04/20/25 02:48 36.8 C 77 20 127/82 92 Room Air 04/19/25 23:03 37.1 C 59 L 18 121/61 90 Room Air Laboratory Results Laboratory Results - last 24 hr 04/19/25 04/19/25 04/19/25 12:15 16:11 20:43 PT INR Sodium Potassium Chloride Carbon Dioxide Anion Gap BUN Creatinine Est Cr Clr Drug Dosing eGFR BUN/Creatinine Ratio Glucose POC Glucose 90 172 H Calcium Magnesium Ur Random Creatinine 16.9 U Random Total Protein 74.5 H Protein/Creatinin Ratio 4.4 H 04/20/25 04/20/25 04/20/25 06:11 07:13 11:20 PT 15.7 H INR 1.5 H Sodium 142 Potassium 3.5 Chloride 107 Carbon Dioxide 26 Anion Gap 9 BUN 24 H Creatinine 1.66 H D Est Cr Clr Drug Dosing 53.5 eGFR 44.90 BUN/Creatinine Ratio 14.5 Glucose 151 H POC Glucose 157 H 73 Calcium 8.7 Magnesium 1.8 Ur Random Creatinine U Random Total Protein Protein/Creatinin Ratio PG Care Time/CCT Total # of Minutes Spent Total Time Spent with Patient: Total time spent is greater than 50% in coordination of care (as documented) at patient's floor/unit and/or counseling patient: Coding Level of Care Code 82054 SUB INP/OBS CARE 3/50MIN Diagnoses Acute on chronic HFrEF (heart failure with reduced ejection fraction) I50.23 Coronary artery disease involving [place] coronary artery of [place] heart, unspecified whether angina present I25.10 Coronary Disease-Associated Artery/Lesion type: [place] artery [place] vs. transplanted heart: [place] heart Associated angina: unspecified whether angina present PAF (paroxysmal atrial fibrillation) I48.0 LBBB (left bundle branch block) I44.7 (2) Coronary artery disease Coronary Disease-Associated Artery/Lesion type: [place] artery [place] vs. transplanted heart: [place] heart Associated angina: unspecified whether angina present Qualified Code(s): I25.10 - Atherosclerotic heart disease of [place] coronary artery without angina pectoris
[2025-04-20 13:15] LABS: Appearance Urine Clear (Clear); Bacteria Urine Automated None Seen (None Seen); Cast Urine Automated 0-2 /lpf (0-2); Epithelial Cell Urine Auto 0-2 /hpf (0-2); Glucose Urine UA 1+ (Negative); WBC Urine Automated 0-5 /hpf (0-5)
[2025-04-20 14:15] LABS: Protein Creatinine Ratio Urine 2.8 (0-0.2); Total Protein Urine Random 84.4 mg/dl (0-11.9)
[2025-04-20] MEDS: WARFARIN SOD 10 MG TAB PO SCH (16:37)
[2025-04-21 02:37] VITALS: O2SAT 96
[2025-04-21 07:13] LABS: Anion Gap 7.0 (3-11); Blood Urea Nitrogen 24.0 mg/dl (6-23); Calcium 8.5 mg/dl (8.6-10.3); Carbon Dioxide 26.0 mmol/L (21-32); Chloride 108.0 mmol/L (98-107); Creatinine Clr Calc Pharmacy 63.4 ml/min; Glucose 106.0 mg/dl (70-99(Fasting)); Magnesium 1.9 mg/dl (1.7-2.4); Potassium 3.4 mmol/L (3.5-5.1); Sodium 141.0 mmol/L (136-145)
[2025-04-21 07:15] LABS: INR 2.0 (0.9-1.1); Prothrombin Time 20.1 Seconds (9.0-12.0)
[2025-04-21 07:39] VITALS: RESP 20
--- NOTE | 2025-04-21 09:55 | Nephrology Progress Note ---
Date of Service April 21, 2025 Assessment & Plan Admission and Anticipated Discharge Date Admission Date: April 18, 2025 Subjective Assessment & Plan (1) ADMIAN (acute kidney injury): Some rise in creatinine but is to be expected given sig drop in cardiac function now. LVEF 15% vs 40% last year. Also some rise happening because of good diuresis. Also creat currently is true reflection of renal function. Admission creat was not really valid with massive edema. Continue lasix 80 iv bid maybe one more day. change to oral diuretics tomorrow Continue CLARISSA, Aldactone and Jardiance for now. Did repeat UA and urine PCR.--this time PCR is 2.8. However nobody gets nephrotic syndrome when serum albumin is totally normal at 4. In any case urine bence peguero and immunofixation ordered for completeness--results will be pending for many days creat today is better at 1.4 (2) Acute on chronic HFrEF (heart failure with reduced ejection fraction): LVEF 15% vs 40% last year. Continue lasix 80 iv bid Continue CLARISSA, Aldactone and Jardiance for now. daily labs S--feeling much better. Less edema. made 4100 ml urine. ROS--see HPI. 12 Systems reviewed and negative otherwise Physical Exam Physical Exam: General: No acute distress. A+Ox3. HEENT: Normocephalic. Atraumatic. PERRL. EOMI. Conjunctiva and sclera clear. Heart: RRR. S1 and S2 noted. No murmur. No rubs or gallops. Lungs: Clear to auscultation. No wheezes. No rhonchi. No rales. Abdomen: Normal bowel sounds. Soft. Nontender. Extremities: 1+ BLE edema. NEURO: No focal deficits. PSYCH: Appropriate affect and insight. Results & Data Vital Signs (Past 12 Hours) Vital Signs Temp Pulse Pulse Pulse Resp BP Pulse Ox 04/21/25 08:00 53 L 04/21/25 08:00 04/21/25 07:38 36.9 C 65 20 158/80 H 96 04/21/25 02:36 36.6 C 59 L 18 140/70 96 04/20/25 22:29 36.6 C 76 18 154/67 H 94 04/20/25 22:02 58 L O2 Del Method 04/21/25 08:00 04/21/25 08:00 Room Air 04/21/25 07:38 Room Air 04/21/25 02:36 Room Air 04/20/25 22:29 Room Air 04/20/25 22:02
--- NOTE | 2025-04-21 10:22 | Cardiology Progress Note ---
Date of Service April 21, 2025 Assessment & Plan (1) Acute on chronic HFrEF (heart failure with reduced ejection fraction): (2) Coronary artery disease: (3) PAF (paroxysmal atrial fibrillation): (4) LBBB (left bundle branch block): Plan 65-year-old male presents with subacute onset of symptoms of worsening lower extremity edema and shortness of breath with findings of acute on chronic congestive heart failure with reduced ejection fraction. Past hospitalized in August 2024 for similar event. Reduced ejection fraction on echocardiography 1. Acute on chronic heart failure with reduced ejection fraction EF 20-25% Patient on GDMT except for consideration of Entresto. Changed to oral diuretics as planned with torsemide and spironolactone 2. Paroxysmal atrial fibrillation on chronic anticoagulation with warfarin 3. New left bundle branch block: Will refer to EP on discharge, arrangements being made for appointment 4. Acute on chronic renal insufficiency: 5. Hypertension: Nifedipine held this admission May consider add low-dose amlodipine. Eval for transition to Entresto post discharge Admission and Anticipated Discharge Date Admission Date: April 18, 2025 Subjective Patient was seen and personally examined. Chart medications and telemetry reviewed Patient feels substantially improved since hospitalization. Lower extremity edema has essentially resolved. No chest pains, shortness of breath, tachypalpitations patient ambulatory in room without difficulty. Telemetry sinus with PACs Review of Systems Review of Systems: All systems reviewed & are unremarkable except as noted in Subjective Physical Exam Constitutional: well developed; no acute distress Eyes: PERRL, conjunctivae normal, anicteric sclerae ENMT: external ear and nose normal, oropharynx normal Neck: trachea midline, no thyromegaly Respiratory: normal respiratory effort, lungs clear to auscultation Auscultation: no wheezes Cardiovascular: Rate/Rhythm: regular rate and regular rhythm Vessels: no JVD Extremities: no edema Gastrointestinal (Abdomen): normal bowel sounds, soft, nontender, no hepato splenomegaly Musculoskeletal: no cyanosis or clubbing, extremities motor strength 5/5 Results & Data Vital Signs (Past 12 Hours) Vital Signs Temp Pulse Pulse Pulse Resp BP Pulse Ox 04/21/25 08:00 53 L 04/21/25 08:00 04/21/25 07:38 36.9 C 65 20 158/80 H 96 04/21/25 02:36 36.6 C 59 L 18 140/70 96 04/20/25 22:29 36.6 C 76 18 154/67 H 94 O2 Del Method 04/21/25 08:00 04/21/25 08:00 Room Air 04/21/25 07:38 Room Air 04/21/25 02:36 Room Air 04/20/25 22:29 Room Air Laboratory Results Laboratory Results - last 24 hr 04/20/25 04/20/25 04/20/25 11:20 13:00 16:04 PT INR Sodium Potassium Chloride Carbon Dioxide Anion Gap BUN Creatinine Est Cr Clr Drug Dosing eGFR BUN/Creatinine Ratio Glucose POC Glucose 73 112 H Calcium Magnesium Urine Color Yellow Urine Appearance Clear Urine pH 7.0 Ur Specific [place] 1.008 Urine Protein 2+ H Urine Glucose (UA) 1+ H Urine Ketones Negative Urine Blood Trace H Urine Nitrite Negative Urine Bilirubin Negative Urine Urobilinogen Negative Ur Leukocyte Esterase Negative Urine WBC (Auto) 0-5 Urine RBC (Auto) 3-5 H U Hyaline Cast (Auto) 0-2 U Epithel Cells (Auto) 0-2 Urine Bacteria (Auto) None Seen Ur Random Creatinine 30.5 U Random Total Protein 84.4 H Protein/Creatinin Ratio 2.8 H Serum Immunofixation Urine Immunofixation Pending Miscellaneous Test Cancelled 04/20/25 04/21/25 04/21/25 20:13 06:09 07:28 PT 20.1 H INR 2.0 H Sodium 141 Potassium 3.4 L Chloride 108 H Carbon Dioxide 26 Anion Gap 7 BUN 24 H Creatinine 1.40 Est Cr Clr Drug Dosing 63.4 eGFR 55.09 BUN/Creatinine Ratio 17.1 Glucose 106 H POC Glucose 113 H 108 H Calcium 8.5 L Magnesium 1.9 Urine Color Urine Appearance Urine pH Ur Specific [place] Urine Protein Urine Glucose (UA) Urine Ketones Urine Blood Urine Nitrite Urine Bilirubin Urine Urobilinogen Ur Leukocyte Esterase Urine WBC (Auto) Urine RBC (Auto) U Hyaline Cast (Auto) U Epithel Cells (Auto) Urine Bacteria (Auto) Ur Random Creatinine U Random Total Protein Protein/Creatinin Ratio Serum Immunofixation Pending Urine Immunofixation Miscellaneous Test PG Care Time/CCT Total # of Minutes Spent Total Time Spent with Patient: Total time spent is greater than 50% in coordination of care (as documented) at patient's floor/unit and/or counseling patient: Coding Level of Care Code 90048 SUB INP/OBS CARE 50MIN Diagnoses Acute on chronic HFrEF (heart failure with reduced ejection fraction) I50.23 Coronary artery disease involving [place] coronary artery of [place] heart, unspecified whether angina present I25.10 Coronary Disease-Associated Artery/Lesion type: [place] artery [place] vs. transplanted heart: [place] heart Associated angina: unspecified whether angina present PAF (paroxysmal atrial fibrillation) I48.0 LBBB (left bundle branch block) I44.7 (2) Coronary artery disease Coronary Disease-Associated Artery/Lesion type: [place] artery [place] vs. transplanted heart: [place] heart Associated angina: unspecified whether angina present Qualified Code(s): I25.10 - Atherosclerotic heart disease of [place] coronary artery without angina pectoris
[2025-04-21 11:34] VITALS: BP 154/75; PULSE 59; TEMP 98.1
--- NOTE | 2025-04-21 11:54 | Discharge Summary ---
Date of Service April 21, 2025 Admission HPI Per Admitting Provider This is a 65 y/o male with hx CAD s/p CABG x 5, DM2, HTN, hyperlipidemia, PAF on chronic AC, CKD3a, prior bladder CA, and other history as outlined below who was sent to the ED today from PCP office after he presented today with progressive LE edema and elevated INR. He reports that he developed LE swelling about a week ago, which has been worsening. He also notes occasional shortness of breath but denies orthopnea. Reports that he sleeps with his legs propped up at night. Denies cough, N/V/D, CP, orthopnea, abdominal pain. He was seen at PCP office today by Dr. Barreto due to the swelling, but also reported pain in left jaw which he attributes to a "bad tooth." He was noted to have a bruise on his jaw - when asked about this, he states that he thinks that he hit his jaw on the corner of the cupboard trying to look outside. He denies hematuria, hematochezia. Has had some constipation recently. Outpatient notes were reviewed including from anticoagulation clinic - his INR has been fluctuating recently and dose was just adjusted to warfarin 5 mg daily. However, INR yesterday was 6.7 so he was told to hold warfarin until 04/19, repeat INR 04/20 to determine future dosing. ECHO 02/28/24 -LVEF 40-44%, large sized apical, septal, and anteroseptal wall motion abnormality with akinesis of the segments Admission Exam Per Admitting Provider General: Elderly man in no distress Eyes: PERRL, conjunctivae normal, not pale, anicteric sclerae, EOM intact bilaterally ENMT: External ear and nose normal, oropharynx normal, +bruise on left lower jaw area. No swelling or tenderness Respiratory: On nasal cannula placed in ER +crackles Cardiovascular: RRR S1 S2 Gastrointestinal (Abdomen): Abdomen is not distended, soft, non-tender to palpation, normal bowel sounds Musculoskeletal: Significant pitting pedal edema on both LE Neurologic: Alert and oriented to person, place, month. No focal deficits. Psychiatric: Normal mood and affect Principal Diagnosis #Acute on chronic HFrEF #Supratherapeutic INR s/p vit k #CAD s/p CABG x 5 Discharge Exam Constitutional: WD/WN, vitals as above, NAD, sitting up in bed, pleasant, conversing easily Respiratory: normal respiratory effort, lungs clear to auscultation, no wheeze, rales, rhonchi. Normal insp/exp effort, no accessory muscle use Cardiovascular: RRR, no murmur, no edema Vessels: no JVD or carotid bruit Chest: normal inspection of chest Abdomen: normal bowel sounds, soft, nontender, no hepatosplenomegaly Musculoskeletal: 1+ pitting edema seen in bilateral lower extremity Neurologic: PERRL, EOMI, accommodation nl, no face palsy, no dysarthria CN's II- XI intact bilaterally and moves all extremities Psychiatric: A+Ox3, euthymic affect Discharge Data Allergies Allergy/AdvReac Type Severity Reaction Status Date / Time metformin AdvReac Gastrointestinal Verified 04/18/25 13:51 Upset Consultations 04/18/25 14:40 ED Decision to Admit Stat 04/18/25 17:26 Consult Cardiology Routine 04/20/25 08:14 Consult Nephrology Routine Ordered Studies 04/18/25 14:45 CT face [CT facial bones wo con] Stat CT head/brain wo con Stat Hospital Course (1) Acute on chronic HFrEF (heart failure with reduced ejection fraction): (2) Elevated INR: (3) CKD (chronic kidney disease) stage 3, GFR 30-59 ml/min: (4) Coronary artery disease: (5) Type 2 diabetes mellitus: (6) PAF (paroxysmal atrial fibrillation): (7) Hyperlipidemia: (8) Essential hypertension: Plan This is a 65 y/o male with hx CAD s/p CABG x 5, DM2, HTN, hyperlipidemia, PAF on chronic AC, CKD3a, prior bladder CA, and other history as outlined below who was sent to the ED today from PCP office after he presented today with progressive LE edema and elevated INR. Work-up in the ED was significant for INR >9.5, BNP 1207. Initial troponin was 25.3, two hour repeat was 25.0. Testing for COVID, flu, RSV were negative. Chest x-ray personally reviewed and shows small left pleural effusion. Pt was referred for admission for acute on chronic HFrEF. #Acute on chronic HFrEF #Supratherapeutic INR s/p vit k #CAD s/p CABG x 5 Patient presents today with significant lower extremity edema Echocardiogram from last year shows EF of 40% Echocardiogram done during admission shows EF of 20 to 25% Examination reveals significant bilateral pitting edema Patient is diuresed with IV Lasix 80 mg twice a day with improvement in bilateral lower extremity edema. Nifedipine was discontinued as it was contributing to lower extremity edema Nephrology was consulted given 3+ proteinuria in the urine; urine and serum immunofixation awaited. Discussion was done with patient and patient's regarding dosing of the Coumadin; they were taking it twice a day previously. Also discussed following up with anticoagulation clinic. Also discussed monitoring weight/lower extremity edema; no change in the dosing of diuretics based on the weight/edema. Patient to follow-up with PCP; obtain BMP, urinalysis, urine protein creatinine ratio during follow-up. Please note the above document was generated using voice recognition software. It may contain grammatical, syntax or spelling errors. Any formal questions or concerns about the content, text or information contained within the body of this dictation should be directly addressed to the provider for clarification Total Time Total Time Spent Total Time Spent (In Minutes): 45 Total Time Includes: Examination of the Patient, Discharge Planning, Medication Reconciliation, Communication With Other Providers and Other Discharge Plan Discharge Items Patient Disposition: Home - Self-Care Reason For Visit: CHF Discharge Diagnosis: Acute on chronic HFrEF (heart failure with reduced ejection fraction): Condition on Discharge: Fair Activity: Resume your previous activity Non-emergency contact: Primary Care Provider Call non-emergency contact if: you have any medication questions and your symptoms worsen Follow-up/Referrals: Audie Vaughn MD [Primary Care Provider] - (Date & Time 04/27/2025 1:40 PM Provider: Audie Vaughn DO General Internal Medicine [facility] ) Diet: Regular Addtl Attending Provider Instructions: You were admitted to the hospital due to heart failure. You are prescribed following medications; Take torsemide 40 mg twice a day. Take it in the morning with breakfast and in the afternoon with lunch. Take spironolactone 25 mg once a day Stop taking furosemide and nifedipine. Check your weight daily at home. If you notice that your weight has gone up by 3 to 5 pounds and is started to develop leg swelling; please reach out to your family doctor to adjust the diuretic regimen. Please follow-up with anticoagulation clinic Please follow-up with your primary care doctor at the scheduled and obtain BMP to check on her kidney function/electrolytes. Addtl Transportation Dispatch Manager Provider Instructions: DIABETES RECOMMENDATIONS: 1.) Monitoring. - Try to check your blood sugar 1x/day x few weeks. - Try to change the time you check from day to day. - Great times to check are before any meal, 1-2 hours after any meal and before bed. - Aim to mainain blood sugar levels below 180 after meals (~80-140 before meals). - Notify your rovider of blood sugar levels frequently above/below target. 2.) Diabetes medications. - You take two diabetes medications (Rapaglinide and Glipizide) from the same class: insulin secretagogues. - Taking two medications from the same class, increases the risk of potential side effects, especially low blood sugar levels (hypoglycemia). - One of these medications (either the Rapaglinide (Prandin) or Glipizide) should likely be discontinued. - Encouraged further discussion with your outpatient provider. - If you skip a meal, hold the Rapaglinide (Prandin). Pending Studies at Discharge: No Stand-Alone Forms: [facility], Smoking Cessation Medications and DC Order Prescriptions: New spironolactone 25 mg Tablet 25 mg PO QAM Qty: 30 0RF torsemide 40 mg tablet 40 mg PO .[id number] Qty: 60 0RF Continued atorvastatin 80 mg tablet 80 mg PO DAILY glipizide 10 mg tablet extended release 24hr 20 mg PO DAILY clopidogrel 75 mg tablet 75 mg PO DAILY potassium chloride 20 mEq tablet,ER particles/crystals 20 meq PO BID warfarin [Jantoven] 5 mg tablet 5 mg PO UD gabapentin 300 mg capsule 300 mg PO HS lisinopril 40 mg tablet 40 mg PO DAILY repaglinide 2 mg Tablet 2 mg PO AC Rx Instructions: administer within 30 minutes of a meal or snack Jardiance 25 mg Tablet 25 mg PO DAILY metoprolol succinate 25 mg Tablet Extended Release 24 Hr 50 mg PO DAILY Discontinued furosemide 80 mg tablet 80 mg PO BID nifedipine [Nifediac CC] 90 mg Tablet Extended Release 90 mg PO DAILY Discharge Orders: Discharge Order- CHF (Routine); Ordered 04/21/25 Ordered By: Vazquez Ulrich/Other Patient Handouts: Heart Failure Meds, What Is Heart Failure, Heart Failure Flare Up Signs, Heart Failure: Tracking Your Weight, High Blood Sugar (Hyperglycemia), Hypoglycemia (Low Blood Sugar), Managing Type 2 Diabetes, Heart Failure Procedures, Coping with Heart Failure, Heart Failure Make Changes Diet, Heart Failure Assessment, Heart Failure Dc Admission Data Admit Date/Time: 04/18/25 14:53 Attending Provider: Vazquez Desouza Admit Provider: Daniela Daly I. Primary Care Provider: Audie Vaughn Other Providers: Daniela Daly I.; Alonzo Rodriguez; Alden Pack Other Interventions: Discharge Summary Assessment (RN) Last Done: 04/21/25 11:37
--- NOTE | 2025-04-21 18:23 | Electrocardiogram Report ---
Test Reason : Blood Pressure : */* mmHG Vent. Rate : 80 BPM Atrial Rate : 80 BPM P-R Int : 320 ms QRS Dur : 130 ms QT Int : 418 ms P-R-T Axes : 46 5 180 degrees QTcB Int : 482 ms Sinus rhythm with 1st degree A-V block with occasional Premature ventricular complexes Left ventricular hypertrophy with QRS widening and repolarization abnormality Poor R wave progression, consider anterior MS vs. lead placement vs. LVH Abnormal ECG When compared with ECG of 18-Apr-2025 12:12, Premature ventricular complexes are now Present Confirmed by Malik Ray ([id number]) on 04/21/2025 6:23:34 PM Referred By: REFERRED SELF Confirmed By: Malik Ray
== END 2025-04-21 13:40 | disposition home or self-care (01) | DRG 291 ==
LOC: ED 11:50 → SUATTDRO 14:53 → 2S 14:53